=== PATIENT | male | born 1955 | race Caucasian/White ===

== ENCOUNTER 2016-09-30 13:20 | Emergency (ER) | payer OTHER ==
[~2016-09-30] VITALS: Ht 177.8 cm; Wt 68.4 kg
[2016-09-30 13:25] VITALS: TEMP 36.8; Ht 177.8 cm; Wt 68.4 kg
[2016-09-30] MEDS ORDERED: AMOX500C3 PO (14:22)
[2016-09-30] MEDS ORDERED: ONDANSETRON INJ 2 MG/ML 2 ML VIAL IV STA (14:33)
[2016-09-30] MEDS ORDERED: MoRPHine SULFATE 4 MG/ML 1 ML CARP\\VIAL IV ONE (14:45)
[2016-09-30] MEDS ORDERED: SODIUM CHLORIDE 0.9% 1000ML 1,000 ML IV ONE (14:45)
[2016-09-30 15:06] LABS: HEMATOCRIT 39.3 % (42-52); MEAN CELL VOLUME 87.1 fL (80-100); MEAN CORPUSCULAR HEMOGLOBIN 29.9 pg (25-34); MEAN CORPUSCULAR HGB CONC 34.4 g/dl (32-36); MEAN PLATELET VOLUME 9.6 fL (7.4-10.4); PLATELET COUNT 206 K/uL (130-400); RED BLOOD COUNT 4.51 M/uL (4.7-6.1)
[2016-09-30 15:30] LABS: ALB/GLOB RATIO 0.8 (0.9-2); BUN/CREATININE RATIO 14.4 (10-20); CALCIUM 8.4 mg/dl (8.5-10.1); CREATININE 0.98 mg/dl (0.60-1.40)
[2016-09-30 15:52] LABS: BASO % 1.2 %; BASO ABS # 0.11 K/uL (0-0.2); COMPLETE YES; EOS % 1.4 %; IG% 0.1 %; LYMPH % 54.8 %; LYMPH ABS # 4.99 K/uL (1.2-3.4); MONO % 7.7 %; NEUT % 34.8 %
[2016-09-30 15:54] LABS: SMUDGE CELLS PRESENT
--- NOTE | 2016-09-30 16:37 | DIAGNOSTIC IMAGING REPORT ---
ULTRASOUND RIGHT GROIN CLINICAL HISTORY: Right groin pain. Hernia. COMPARISON STUDY: No priors. FINDINGS: Real-time, grayscale, and color flow sonography of the right groin is performed at the indicated site of discomfort. There is no sonographic evidence of inguinal hernia. No hernia could be elicited by having the patient perform the Valsalva maneuver. There is a cystic structure in the right groin at the indicated site of discomfort which measures 3.1 x 1.7 x 3.0 cm. This contains a thin internal septation. No vascularity was identified on color imaging. There are additional adjacent nonvascular tubular structures in this region. IMPRESSION: 1. There is no sonographic evidence of inguinal hernia as clinically queried. 2. There is an indeterminant 3.1 cm minimally complex nonvascular cystic structure seen in the right groin at the site of discomfort as detailed above. This is of indeterminant etiology and significance. Clinical correlation will be required. Electronically signed by: Grant Pathak M.D. 09/30/2016 4:35 PM Dictated Date/Time: 09/30/2016 4:31 PM
[2016-09-30 17:15] VITALS: BP 120/75; PULSE 69; O2SAT 96
[2016-09-30 17:31] LABS: URINE APPEARANCE CLEAR (CLEAR); URINE BILIRUBIN NEG (NEG); URINE COLOR YELLOW; URINE NITRITE NEG (NEG); URINE SPECIFIC GRAVITY 1.016 (1.000-1.030); UROBILINOGEN NEG (NEG); ZZUR CULT IF INDIC CLEAN CATCH NO
[2016-09-30 17:39] LABS: MANUAL MICROSCOPIC REQUIRED? NO; REVIEW REQ? NO
--- NOTE | 2016-09-30 21:00 | EMERGENCY ROOM VISIT NOTE ---
History First contact with patient: 14:22 Chief Complaint: ILLNESS Stated Complaint: LIGHT-HEADED, SICKLY, REFERRED BY DOCTOR History of Present Illness The patient is a 61 year old male who presents to the Emergency Room with complaints of generalized illness and malaise for the past 2-3 days. The patient was seen by his primary care physician this morning, and evidently has a nonreducible right inguinal hernia. The patient states that several days ago he was lifting heavy objects, and began having pain in this area ever since. The patient has not had fever or chills that he can recall. He is without chest pain or shortness of breath. He does not have abdominal pain. He is currently on amoxicillin for possible recurrent Lyme disease. The patient has not had difficulty using the bathroom. He rates his current discomfort a 2/10 at rest and 7/10 when you press in the inguinal canal. Review of Systems More than 10 systems were reviewed and otherwise negative with the exception of history of present illness. Past Medical/Surgical History No chronic medical disease Family History No pertinent family history Social History Smoking Status: Never Smoker Housing Status: lives with family Current/Historical Medications Scheduled Amoxicillin (Amoxil), 500 MG PO Q6H Allergies Coded Allergies: No Known Allergies (Unverified , 09/30/16) Physical Exam Vital Signs Date Time Temp Pulse Resp B/P Pulse Ox O2 Delivery O2 Flow Rate FiO2 09/30/16 17:15 69 15 120/75 96 Room Air 09/30/16 13:25 36.8 69 18 120/75 100 Room Air Physical Exam VITALS: Vitals are noted on the nurse's note and reviewed by myself. Vital signs stable. GENERAL: Well-developed, well-nourished, white male, who is in no acute distress and resting comfortably. Patient is cooperative with the examination. HEAD: Normocephalic atraumatic. HEART: Regular rate and rhythm without murmurs gallops or rubs. LUNGS: Clear to auscultation bilaterally without wheezes, rales or rhonchi. No retractions or accessory muscle use. ABDOMEN: Positive normal bowel sounds x 4. Soft without obvious mass of the abdomen. The right inguinal canal is with a tender mass measuring approximately 4 x 4 centimeters in dimension. Clinically this appears most consistent with hernia. This area is not reducible. No testicular tenderness MUSCULOSKELETAL: No muscle atrophy, erythema, or edema noted. Medical Decision & Procedures ER Provider Diagnostic Interpretation: ULTRASOUND RIGHT GROIN CLINICAL HISTORY: Right groin pain. Hernia. COMPARISON STUDY: No priors. FINDINGS: Real-time, grayscale, and color flow sonography of the right groin is performed at the indicated site of discomfort. There is no sonographic evidence of inguinal hernia. No hernia could be elicited by having the patient perform the Valsalva maneuver. There is a cystic structure in the right groin at the indicated site of discomfort which measures 3.1 x 1.7 x 3.0 cm. This contains a thin internal septation. No vascularity was identified on color imaging. There are additional adjacent nonvascular tubular structures in this region. IMPRESSION: 1. There is no sonographic evidence of inguinal hernia as clinically queried. 2. There is an indeterminant 3.1 cm minimally complex nonvascular cystic structure seen in the right groin at the site of discomfort as detailed above. This is of indeterminant etiology and significance. Clinical correlation will be required. Laboratory Results 09/30/16 14:50 Red Blood Count 4.51, Mean Corpuscular Volume 87.1, Mean Corpuscular Hemoglobin 29.9, Mean Corpuscular Hemoglobin Concent 34.4, Mean Platelet Volume 9.6, Neutrophils (%) (Auto) 34.8, Lymphocytes (%) (Auto) 54.8, Monocytes (%) (Auto) 7.7, Eosinophils (%) (Auto) 1.4, Basophils (%) (Auto) 1.2, Neutrophils # (Auto) 3.16, Lymphocytes # (Auto) 4.99, Monocytes # (Auto) 0.70, Eosinophils # (Auto) 0.13, Basophils # (Auto) 0.11 09/30/16 14:50 Test 09/30/16 14:50 09/30/16 17:15 White Blood Count 9.10 K/uL (4.8-10.8) Red Blood Count 4.51 M/uL (4.7-6.1) Hemoglobin 13.5 g/dL (14.0-18.0) Hematocrit 39.3 % (42-52) Mean Corpuscular Volume 87.1 fL (80-100) Mean Corpuscular Hemoglobin 29.9 pg (25-34) Mean Corpuscular Hemoglobin Concent 34.4 g/dl (32-36) Platelet Count 206 K/uL (130-400) Mean Platelet Volume 9.6 fL (7.4-10.4) Neutrophils (%) (Auto) 34.8 % Lymphocytes (%) (Auto) 54.8 % Monocytes (%) (Auto) 7.7 % Eosinophils (%) (Auto) 1.4 % Basophils (%) (Auto) 1.2 % Neutrophils # (Auto) 3.16 K/uL (1.4-6.5) Lymphocytes # (Auto) 4.99 K/uL (1.2-3.4) Monocytes # (Auto) 0.70 K/uL (0.11-0.59) Eosinophils # (Auto) 0.13 K/uL (0-0.5) Basophils # (Auto) 0.11 K/uL (0-0.2) RDW Standard Deviation 43.2 fL (36.4-46.3) RDW Coefficient of Variation 13.6 % (11.5-14.5) Immature Granulocyte % (Auto) 0.1 % Immature Granulocyte # (Auto) 0.01 K/uL (0.00-0.02) Nucleated RBC Absolute Count (auto) 0.00 K/uL (0-0) Nucleated Red Blood Cells % 0.0 % Smudge Cells PRESENT Peripheral Blood Smear Path Consult Anion Gap 10.0 mmol/L (3-11) Est Creatinine Clear Calc Drug Dose 75.6 ml/min Estimated GFR () 95.4 Estimated GFR (Non- 82.3 BUN/Creatinine Ratio 14.4 (10-20) Calcium Level 8.4 mg/dl (8.5-10.1) Total Bilirubin 0.4 mg/dl (0.2-1) Aspartate Amino Transf (AST/SGOT) 42 U/L (15-37) Alanine Aminotransferase (ALT/SGPT) 48 U/L (12-78) Alkaline Phosphatase 55 U/L (45-117) Total Protein 6.8 gm/dl (6.4-8.2) Albumin 3.0 gm/dl (3.4-5.0) Globulin 3.8 gm/dl (2.5-4.0) Albumin/Globulin Ratio 0.8 (0.9-2) Thyroid Stimulating Hormone (TSH) 1.140 uIu/ml (0.300-4.500) Urine Color YELLOW Urine Appearance CLEAR (CLEAR) Urine pH 5.0 (4.5-7.5) Urine Specific [place] 1.016 (1.000-1.030) Urine Protein NEG (NEG) Urine Glucose (UA) NEG (NEG) Urine Ketones TRACE (NEG) Urine Occult Blood NEG (NEG) Urine Nitrite NEG (NEG) Urine Bilirubin NEG (NEG) Urine Urobilinogen NEG (NEG) Urine Leukocyte Esterase NEG (NEG) Medications Administered Medications (Trade) Dose Ordered Sig/Slime Route Start Time Stop Time Status Last Admin Dose Admin Sodium Chloride (Nss 1000ml) 1,000 ml @ 999 mls/hr Q1H1M ONCE IV 09/30/16 14:45 09/30/16 15:45 DC 09/30/16 15:15 999 MLS/HR ED Course Physical exam and history were performed. Nursing notes and EMR were reviewed. Patient appears to have a mass in his right inguinal area. Clinically this seems most consistent with a hernia that is not reducible. There is concern from the primary care physician this could represent an incarcerated hernia. IV access was established and labs were obtained. The patient was hydrated with normal saline. Ultrasound was performed. The patient's blood work is as above and was reviewed. He does not have a significantly elevated white blood cell count. He is slightly anemic. His absolute lymphocytes are also elevated and he does have smudge cells on the pathology report. Ultrasound of the groin does not show a hernia, but shows a nonvascular cystic like structure. This could be a cyst or lymph node. I did have concern regarding the patient's symptoms. He appears to be [employer] , and by his own admission has irregular visits to the doctor's office. Because of the elevated absolute lymphocyte level and smudge cells I did ask pathology to review the peripheral smear. This spoke with pathology, and the smear does not appear consistent with CLL or other lymphoproliferative process. The most likely explanation is a reactionary smudge cell of unknown clinical significance. Overall the patient does appear stable for discharge home, as his blood work and ultrasound did not show evidence of an acute life- threatening process. The patient will need more follow-up, and ideally would be able to see a surgeon tomorrow for biopsy of this mass. Unfortunately, the patient lives in [facility], and I do not have contact with general surgery in that region. Because of this I will ask the patient to contact her primary care physician's office in the morning, and hopefully she will be able to get a referral to a surgeon tomorrow. I explained the importance of short interval follow-up, and if they are not able to see surgery closer to home, they are to come back to the emergency department to speak with case management. From there we will help establish a contact point for further care. The patient is otherwise to continue his current medications. He was otherwise invited back to the ER with any new, worsening, or concerning symptoms. The chart was completed utilizing [employer] Speech Voice Recognition Software. Grammatical errors, random word insertions, pronoun errors, and incomplete sentences are an occasional consequence of this system due to software limitations, ambient noise, and hardware issues. Any formal questions or concerns about the content, text, or information contained within the body of this dictation should be directly addressed to the provider for clarification. . Medical Decision Differential diagnosis includes, but is not limited to: Abscess, cellulitis, hernia, infection, lymphadenopathy, cancer, anemia, mass, and others Impression Primary Impression: Mass of right inguinal region Departure Information Referrals Waqar Smith D.O. (PCP) Patient Instructions [facility]
== END 2016-09-30 17:59 | disposition home or self-care (01) ==
LOC: C.EDB 13:21
DX: R19.00 Intra-abdominal and pelvic swelling, mass and lump, unspecified site (principal)